=== PATIENT | male | born 1950 | race Caucasian/White ===

== ENCOUNTER 2017-02-20 00:42 | Emergency (ER) | payer SELFPAY ==
[~2017-02-20] VITALS: Ht 185.4 cm; Wt 115.0 kg
[2017-02-20 00:50] VITALS: PULSE 75; RESP 20; TEMP 98.3; O2SAT 96
[2017-02-20 00:53] VITALS: BP 149/111; PULSE 75; RESP 16; O2SAT 96
[2017-02-20] MEDS ORDERED: SODIUM CHLORIDE 0.9% FLUSH 10 ML FLUSH IVF PRN (01:00)
[2017-02-20 01:08] LABS: AUTOMATED NEUTROPHIL # 4.7 TH/MM3 (1.8-7.7); BASOPHIL # 0.1 TH/MM3 (0-0.2); BASOPHIL % 1.2 % (0.0-2.0); EOSINOPHIL # 0.6 TH/MM3 (0-0.4); EOSINOPHIL % 6.9 % (0.0-4.0); HEMATOCRIT 42.7 % (39.0-51.0); HEMO FLAGS DIFF FINAL; LYMPHOCYTE # 3.1 TH/MM3 (1.0-4.8); MEAN CELL VOLUME 88.8 FL (80.0-100.0); MEAN CORPUSCULAR HEMOGLOBIN 29.7 PG (27.0-34.0); MEAN CORPUSCULAR HGB CONC 33.4 % (32.0-36.0); MONO % 7.7 % (0.0-8.0); NEUT % 51.2 % (16.0-70.0); PLATELET COUNT 187 TH/MM3 (150-450); RED BLOOD COUNT 4.81 MIL/MM3 (4.50-5.90); RED CELL DISTRIBUTION WIDTH 13.6 % (11.6-17.2); WHITE BLOOD COUNT 9.3 TH/MM3 (4.0-11.0)
--- NOTE | 2017-02-20 01:14 | RADRPT ---
EXAM DATE/TIME: 02/20/2017 01:06 [place] COMPARISON: No previous studies available for comparison. INDICATIONS : Pt became SOB this evening. MEDICAL HISTORY : Coronary Artery disease SURGICAL HISTORY : Cardiac cath ENCOUNTER: Initial ACUITY: 1 day PAIN SCORE: 7/10 LOCATION: Bilateral chest FINDINGS: The lungs are clear without infiltrate, nodule, or mass. There is no appreciable pleural effusion fo r technique. Heart and mediastinum are unremarkable. CONCLUSION: No acute cardiopulmonary disease. Katie Phelps MD on February 20, 2017 at 1:13 Board Certified Radiologist. This report was verified electronically.
[2017-02-20 01:37] LABS: ALKALINE PHOSPHATASE 72 U/L (45-117); CREATINE KINASE 138 U/L (39-308); TOTAL BILIRUBIN ADULT 0.4 MG/DL (0.2-1.0)
--- NOTE | 2017-02-20 01:37 | PD ---
HPI . Dyspnea Chief Complaint: Respiratory Symptoms Time Seen by Provider: 00:54 Travel History International Travel<30 days: No Contact w/Intl Traveler<30days: No Traveled to known affect area: No History of Present Illness HPI Patient was brought to us via [facility] chief complaint of dyspnea. The patient reports that he has had episodic dyspnea on exertion for 3 years. He had an episode tonight while using his iPad. His family reportedly gave him a benzodiazepine as they thought that he might be having a panic attack. He was also given nitroglycerin. The patient reports that his symptoms have all but subsided at this point. Patient denies any associated chest pain. His dyspnea is exacerbated by exertion and relieved by rest. 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) Tetanus Vaccination: < 5 Years Influenza Vaccination: No Past Surgical History Coronary Stent: Yes Social History Alcohol Use: No Tobacco Use: No Substance Use: No Allergies-Medications (Allergen,Severity, Reaction): Coded Allergies: No Known Allergies (Unverified , 02/20/17) Reported Meds & Prescriptions Reported Meds & Active Scripts Active No Active Prescriptions or Reported Medications Review of Systems Except as stated in HPI: all other systems reviewed are Neg General / Constitutional: No: Fever, Chills Cardiovascular: No: Chest Pain or Discomfort Respiratory: Positive: Shortness of Breath, No: Cough Physical Exam Narrative GENERAL: Awake and alert and in no acute distress. SKIN: Warm and dry. HEAD: Atraumatic. Normocephalic. EYES: Pupils equal and round. Extraocular movements are intact. ENT: No nasal bleeding or discharge. Mucous membranes pink and moist. NECK: Trachea midline. Neck is supple. CARDIOVASCULAR: Regular rate and rhythm. Heart sounds are normal. RESPIRATORY: No accessory muscle use. Lungs are clear with good air movement throughout. GASTROINTESTINAL: Abdomen soft, non-tender, nondistended. MUSCULOSKELETAL: No obvious deformities. No edema. NEUROLOGICAL: Awake and alert. No obvious cranial nerve deficits. Motor grossly within normal limits. Normal speech. PSYCHIATRIC: Appropriate mood and affect; insight and judgment normal. Data Data Last Documented VS Vital Signs Date Time Temp Pulse Resp B/P Pulse Ox O2 Delivery O2 Flow Rate FiO2 02/20/17 00:58 18 96 Nasal Cannula 2 02/20/17 00:53 75 149/111 02/20/17 00:50 98.3 Orders Complete Blood Count With Diff (02/20/17 00:54) Comprehensive Metabolic Panel (02/20/17 00:54) B-Type Natriuretic Peptide (02/20/17 00:54) Magnesium (Mg) (02/20/17 00:54) Ckmb (Isoenzyme) Profile (02/20/17 00:54) Troponin I (02/20/17 00:54) Iv Access Insert/Monitor (02/20/17 00:54) Electrocardiogram (02/20/17 00:54) Ecg Monitoring (02/20/17 00:54) Oximetry (02/20/17 00:54) Oxygen Administration (02/20/17 00:54) Chest, Single Ap (02/20/17 00:54) Sodium Chloride 0.9% Flush (Ns Flush) (02/20/17 01:00) CKMB (02/20/17 01:00) CKMB% (02/20/17 01:00) Labs Laboratory Tests Test 02/20/17 01:00 White Blood Count 9.3 TH/MM3 Red Blood Count 4.81 MIL/MM3 Hemoglobin 14.3 GM/DL Hematocrit 42.7 % Mean Corpuscular Volume 88.8 FL Mean Corpuscular Hemoglobin 29.7 PG Mean Corpuscular Hemoglobin 33.4 % Concent Red Cell Distribution Width 13.6 % Platelet Count 187 TH/MM3 Mean Platelet Volume 10.0 FL Neutrophils (%) (Auto) 51.2 % Lymphocytes (%) (Auto) 33.0 % Monocytes (%) (Auto) 7.7 % Eosinophils (%) (Auto) 6.9 % Basophils (%) (Auto) 1.2 % Neutrophils # (Auto) 4.7 TH/MM3 Lymphocytes # (Auto) 3.1 TH/MM3 Monocytes # (Auto) 0.7 TH/MM3 Eosinophils # (Auto) 0.6 TH/MM3 Basophils # (Auto) 0.1 TH/MM3 CBC Comment DIFF FINAL Differential Comment Sodium Level 140 MEQ/L Potassium Level 3.9 MEQ/L Chloride Level 105 MEQ/L Carbon Dioxide Level 25.3 MEQ/L Anion Gap 10 MEQ/L Blood Urea Nitrogen 15 MG/DL Creatinine 1.20 MG/DL Estimat Glomerular Filtration 61 ML/MIN Rate Random Glucose 117 MG/DL Calcium Level 8.6 MG/DL Magnesium Level 1.9 MG/DL Total Bilirubin 0.4 MG/DL Aspartate Amino Transf 66 U/L (AST/SGOT) Alanine Aminotransferase 69 U/L (ALT/SGPT) Alkaline Phosphatase 72 U/L Total Creatine Kinase 138 U/L Creatine Kinase MB 1.3 NG/ML Troponin I 0.05 NG/ML B-Type Natriuretic Peptide 56 PG/ML Total Protein 7.2 GM/DL Albumin 3.6 GM/DL MDM Medical Decision Making Medical Screen Exam Complete: Yes Emergency Medical Condition: Yes Medical Record Reviewed: Yes (no previous visits here.) Interpretation(s) EKG shows a normal sinus rhythm with no ST segment elevation or depression. The computer reads the EKG as limb reversal. The nurse assures me that the leads were appropriately placed. Differential Diagnosis Differential diagnosis of dyspnea includes but is not limited to congestive heart failure, pneumonia, wheezing, pneumothorax, pulmonary embolism Narrative Course The patient presents with a 3 year history of intermittent dyspnea on exertion. His lungs sound clear. He is not having any respiratory distress at this time. Last Impressions Chest X-Ray 02/20/17 0054 Signed Impressions: Service Date/Time: Monday, February 20, 2017 01:06 - CONCLUSION: No acute cardiopulmonary disease. Katie Phelps MD The chest x-ray was independently viewed by me. CBC & BMP Diagram 02/20/17 01:00 Cardiac enzymes are negative. BNP is 56. The patient is here for evaluation of dyspnea on exertion which has been a problem for him about 3 years. No acute etiology for his symptoms was found. This patient is stable for discharge and further evaluation as an outpatient. Diagnosis Primary Impression: Dyspnea Qualified Code: R06.09 - Dyspnea on exertion Patient Instructions: Dyspnea (ED), General Instructions Additional Instructions: See your doctor for further evaluation. Scripts No Active Prescriptions or Reported Meds Disposition: DISCHARGE HOME Condition: Stable Evangelina Soliman MD Feb 20, 2017 01:36
[2017-02-20 01:40] LABS: ALT (GPT) 69 U/L (12-78); ANION GAP 10 MEQ/L (5-15); AST (GOT) 66 U/L (15-37); BICARBONATE 25.3 MEQ/L (21.0-32.0); BLOOD UREA NITROGEN 15 MG/DL (7-18); CHLORIDE 105 MEQ/L (98-107); GLOMERULAR FILTRATION RATE 61 ML/MIN (>89); MAGNESIUM 1.9 MG/DL (1.5-2.5); POTASSIUM 3.9 MEQ/L (3.5-5.1); SODIUM (NA) 140 MEQ/L (136-145)
[2017-02-20 01:50] LABS: CKMB 1.3 NG/ML (0.5-3.6)
--- NOTE | 2017-02-20 15:35 | EKG ---
Date Performed: 02/20/2017 Time Performed: 00:55:06 PTAGE: 66 years EKG: Sinus rhythm ARM LEADS REVERSED ATYPICAL ECG Since PREVIOUS TRACING , 06/10/1998, this tracing shows reversed arm leads, please repeat leslie hansen with proper connections. PREVIOUS TRACIN06/10/1998 DOCTOR: Earl Bruno Interpretating Date/Time 02/20/2017 15:33:33
== END 2017-02-20 02:41 | disposition home or self-care (01) ==
LOC: NEPC 00:42
DX: R06.09 Other forms of dyspnea (principal); I25.10 Atherosclerotic heart disease of native coronary artery without angina pectoris
CPT/HCPCS: 71010; 80053; 82550; 82552; 83735; 83880; 84484; 85025; 93005